=== PATIENT | male | born 1950 | race Caucasian/White ===

== ENCOUNTER 2017-01-22 20:15 | Emergency (ER) | payer MEDICARE, OTHER ==
--- NOTE | 2017-01-22 20:56 | EDM.PDOC ---
ED HPI GENERAL MEDICAL PROBLEM - General Chief Complaint: Cardiovascular Problem Stated Complaint: BLOOD TEST SHOW HEART ISSUES Time Seen by Provider: 01/22/17 20:31 Source of Information: Reports: Patient, RN Notes Reviewed, Other (Friend) History Limitations: Reports: No Limitations - History of Present Illness INITIAL COMMENTS - FREE TEXT/NARRATIVE: The patient states that he had vertigo with associated nausea this morning when he woke up. He was unable to walk in a straight line. His symptoms persisted for about 90 minutes, after which he felt lightheaded, particularly if he stood up, a symptom that has persisted all day. He was seen at the [facility] this morning, where a troponin was drawn, but not actually run until this afternoon. The patient states that he was contacted by the [facility] around 19:00, informed that his troponin was elevated, and instructed to come to the ED. The patient expressly denies any recent chest pain or discomfort, dyspnea, diaphoresis, or sense of impending doom. He states that when he suffered an acute TN in 1998, he presented with severe chest pressure, along with feeling cold and clammy. He states that he did not have either vertigo or lightheadedness with his TN, and that there is "no comparison". The patient denies prior symptoms of vertigo, but states that he has had positional lightheadedness in the past, that he attributes to his blood pressure medications. The patient's PCP is Thomas Mcgee. - Related Data Allergies Allergy/AdvReac Type Severity Reaction Status Date / Time No Known Allergies Allergy Verified 01/22/17 20:22 Home Meds: Home Meds Aspirin 81 mg PO DAILY 01/22/17 [History] Atenolol 12.5 mg PO BID 01/22/17 [History] Lisinopril 20 mg PO DAILY 01/22/17 [History] Omeprazole 20 mg PO DAILY PRN 01/22/17 [History] Simvastatin [Zocor] 20 mg PO DAILY 01/22/17 [History] metFORMIN [Glucophage XR] 1,000 mg PO BID 01/22/17 [History] Past Medical History Cardiovascular History: Reports: CAD, High Cholesterol, Hypertension, TN Gastrointestinal History: Reports: GERD (untreated) Endocrine/Metabolic History: Reports: Diabetes, Type II, Obesity/BMI 30+ - Past Surgical History HEENT Surgical History: Reports: Other (See Below) (Mandible wiring) Cardiovascular Surgical History: Reports: Coronary Artery Stent (x 1) GI Surgical History: Reports: Hernia, Inguinal (right) Male Surgical History: Reports: Other (See Below) (Right orchiectomy) Social & Family History - Tobacco Use Smoking Status *Q: Former Smoker Years of Tobacco use: 23 Packs/Tins Daily: 3 Month Tobacco Last Used: Quit 1986 - Caffeine Use Caffeine Use: Reports: Coffee - Alcohol Use Alcohol Use History: Yes Date/Time of Last Drink Comment: Stopped drinking 1989 Alcohol Use in Last Twelve Months: No - Recreational Drug Use Recreational Drug Use: No - Living Situation & Occupation Living situation: Reports: , Alone 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) ED ROS GENERAL - Review of Systems Review Of Systems: See Below Constitutional: Reports: No Symptoms HEENT: Reports: No Symptoms Respiratory: Reports: No Symptoms Cardiovascular: Reports: No Symptoms Endocrine: Reports: No Symptoms GI/Abdominal: Reports: No Symptoms : Reports: No Symptoms Musculoskeletal: Reports: No Symptoms Skin: Reports: No Symptoms Neurological: Reports: No Symptoms Psychiatric: Reports: No Symptoms Hematologic/Lymphatic: Reports: No Symptoms Immunologic: Reports: No Symptoms ED EXAM, GENERAL - Physical Exam Exam: See Below Exam Limited By: No Limitations General Appearance: Alert, WD/WN, No Apparent Distress Eye Exam: Bilateral Eye: Normal Inspection Ears: Normal External Exam, Hearing Grossly Normal Nose: Normal Inspection, No Blood Throat/Mouth: Normal Inspection, Normal Lips, Normal Voice, No Airway Compromise Head: Atraumatic, Normocephalic Neck: Normal Inspection, Full Range of Motion Respiratory/Chest: No Respiratory Distress, Lungs Clear, Normal Breath Sounds, No Accessory Muscle Use, Chest Non-Tender Cardiovascular: Normal Peripheral Pulses, Regular Rate, Rhythm, No Gallop, No JVD, No Murmur, No Rub Peripheral Pulses: 4+: Radial (L), Radial (R) GI/Abdominal: Normal Bowel Sounds, Soft, Non-Tender, No Organomegaly, No Distention, No Abnormal Bruit, No Mass, Other (Obese) (Male) Exam: Deferred Rectal (Males) Exam: Deferred Back Exam: Normal Inspection, Full Range of Motion, NT Extremities: Normal Inspection, Normal Range of Motion, No Pedal Edema, Normal Capillary Refill Neurological: Alert, Oriented, Normal Cognition, No Motor/Sensory Deficits Psychiatric: Normal Affect Skin Exam: Warm, Dry, Intact, Normal Color, No Rash EKG INTERPRETATION EKG Date: 01/22/17 Time: 20:26 Rhythm: NSR Rate (Beats/Min): 69 Waucoma: Normal P-Wave: Present QRS: Normal ST-T: Normal QT: Normal Comparison: NA - No Prior EKG EKG Interpretation Comments: 2 PVC's Course - Vital Signs Last Recorded V/S: Last Vital Signs Temp 36.4 C 01/22/17 20:19 Pulse 65 01/22/17 20:19 Resp 16 01/22/17 20:19 BP 168/67 H 01/22/17 20:19 Pulse Ox 95 01/22/17 20:19 Orthostatic Blood Pressure [ 121/65 Standing] Orthostatic Blood Pressure [ 119/70 Sitting] Orthostatic Blood Pressure [ 122/70 Supine] - Orders/Labs/Meds Orders: Active Orders 24 hr Category Date Time Status EKG Documentation Completion [RC] STAT Care 01/22/17 20:34 Active Orthostatic Vital Signs [RC] STAT Care 01/22/17 20:48 Active Labs: Laboratory Tests 01/22/17 01/22/17 01/22/17 Range/Units 20:30 20:30 20:30 WBC 9.32 H (4.23-9.07) K/mm3 RBC 4.72 (4.63-6.08) M/mm3 Hgb 15.1 (13.7-17.5) gm/L Hct 43.7 (40.1-51.0) % MCV 92.6 H (79.0-92.2) fl MCH 32.0 (25.7-32.2) pg MCHC 34.6 (32.2-35.5) g/dl RDW Std Deviation 42.7 (35.1-43.9) fL Plt Count 202 (163-337) K/mm3 MPV 9.6 (9.4-12.3) fl Neutrophils % (Manual) 39 L (40-60) % Band Neutrophils % 1 (0-10) % Lymphocytes % (Manual) 56 H (20-40) % Atypical Lymphs % 0 % Monocytes % (Manual) 3 (2-10) % Eosinophils % (Manual) 1 (0.8-7.0) % Basophils % (Manual) 0 L (0.2-1.2) Platelet Estimate Adequate Plt Morphology Comment Normal RBC Morph Comment Normal PT 10.0 (8.0-13.0) SECONDS INR 0.92 APTT 25 (22-36) SECONDS D-Dimer, Quantitative 0.33 (0.19-0.59) mg/L Sodium 143 (136-145) mEq/L Potassium 3.3 L (3.5-5.1) mEq/L Chloride 106 (98-107) mEq/L Carbon Dioxide 25 (21-32) mEq/L Anion Gap 15.3 H (5-15) BUN 13 (7-18) mg/dL Creatinine 0.9 (0.7-1.3) mg/dL Est Cr Clr Drug Dosing 79.17 mL/min Estimated GFR (MDRD) > 60 (>60) mL/min BUN/Creatinine Ratio 14.4 (14-18) Glucose 120 H (80-115) mg/dL Calcium 8.9 (8.5-10.1) mg/dL Total Bilirubin 0.2 (0.2-1.0) mg/dL AST 19 (15-37) U/L ALT 27 (16-63) U/L Alkaline Phosphatase 44 L (46-116) U/L Troponin I 0.097 H* (0.00-0.056) ng/mL NT-Pro-B Natriuret Pep 98 (0-125) pg/mL Total Protein 7.0 (6.4-8.2) g/dl Albumin 3.6 (3.4-5.0) g/dl Globulin 3.4 gm/dL Albumin/Globulin Ratio 1.1 (1-2) - Re-Assessments/Exams Free Text/Narrative Re-Assessment/Exam: 01/22/17 20:55 Two-view chest radiograph obtained at 10:13 this morning appears to be grossly normal. Cardiac silhouette is within normal limits. No pulmonary vascular congestion. No pleural effusions. No focal infiltrate. No pneumothorax. Formal read per the Radiologist pending. 01/22/17 21:12 The patient is not orthostatic. 01/22/17 21:50 Test results discussed with the patient and his friend. Bety's workup is unremarkable, with the exception of his troponin being mildly elevated at 0.097 , the exact same as it was at 10:45 this morning when drawn at the [facility]. If due to a cardiac injury, this would suggest that it is at least several days old. The patient suffered an TN in 1998 or 1999, and received a single cardiac stent in [place], [place]. I recommended that I call a Sales Agent in [place] to discuss the case - he had no preference of [facility] versus [facility]. 01/22/17 21:[address] Gallagher, Sales Agent at [facility], at 21:55. Since the troponin is only mildly elevated and unchanged from this morning, he suggested that the patient may always have a mildly elevated troponin. Since we do not have any troponins other than the 2 from today, there is no way for me to know that. He recommends that if the patient has any symptoms whatsoever, that he be kept overnight for observation, otherwise, he recommends an outpatient stress test and echocardiogram. He does not recommend transfer to [facility]. 01/22/17 22:03 The above was discussed with the patient and his friend. Since the patient has been feeling lightheaded, I recommended that he come in for observation, and that both a stress test and echocardiogram might be possible during this visit, however, the patient replied that he has an appointment for an evaluation for carotid stenosis on 01/30/2017, and that he did not want to stay. This was over the objection of his friend. I recommended that if he develops any additional symptoms, that he return to the ER, and that he follow-up with his PCP as soon as possible to arrange for, specifically, an outpatient stress test and echocardiogram. The patient agreed. Departure - Departure Time of Disposition: 22:06 Disposition: Home, Self-Care 01 Condition: Fair Clinical Impression: Elevated troponin, Lightheaded, Vertigo Instructions: Near-Syncope, Vertigo, [id number], Dizziness, [id number] Referrals: Thomas Mcgee PA-C [Primary Care Provider] - Forms: ED Department Discharge Additional Instructions: You were seen in the emergency room for an elevated cardiac enzyme. Workup in the ER included blood work, that included a repeat cardiac enzyme, an ECG, a chest x-ray, and positional blood pressure checks. Your entire workup was unremarkable, with the exception of your cardiac enzyme again being mildly elevated, the same as it was this morning. Your case was discussed with the Sales Agent Dr. Gallagher. It is possible that you always have a mildly elevated cardiac enzyme, but there is no way for us to know that. Since you had been feeling lightheaded, he recommended that you be observed in the hospital overnight, however, you refused this option. We recommend that you contact your PCP, Thomas Mcgee, to arrange for an outpatient cardiac stress test and echocardiogram, as soon as possible. If you have ANY change in your symptoms, including chest pain, nausea, shortness of breath, sweatiness, clamminess, or anxiety, you return to the ER right away. - My Orders Last 24 Hours: My Active Orders 01/22/17 20:34 EKG Documentation Completion [RC] STAT 01/22/17 20:48 Orthostatic Vital Signs [RC] STAT - Assessment/Plan Last 24 Hours: My Active Orders 01/22/17 20:34 EKG Documentation Completion [RC] STAT 01/22/17 20:48 Orthostatic Vital Signs [RC] STAT
== END 2017-01-22 22:20 | disposition home or self-care (01) ==
LOC: JD.ED 20:15
DX: R42 Dizziness and giddiness (principal); R79.89 Other specified abnormal findings of blood chemistry; I10 Essential (primary) hypertension; I25.10 Atherosclerotic heart disease of native coronary artery without angina pectoris; E78.00 Pure hypercholesterolemia, unspecified; K21.9 Gastro-esophageal reflux disease without esophagitis; E11.9 Type 2 diabetes mellitus without complications; Z95.5 Presence of coronary angioplasty implant and graft; Z87.891 Personal history of nicotine dependence; Z79.84 Long term (current) use of oral hypoglycemic drugs; Z79.82 Long term (current) use of aspirin; Z79.899 Other long term (current) drug therapy; E78.5 Hyperlipidemia, unspecified; I25.2 Old myocardial infarction
CPT/HCPCS: 36415; 71020; 71020-26; 80053; 82553; 83880; 84484; 85025; 85379; 85610; 85730; 93005; 93010; 99284; 99284-25

== ENCOUNTER 2018-07-01 14:14 | Emergency (ER) | payer MEDICARE, OTHER ==
--- NOTE | 2018-07-01 16:15 | EDM.PDOC ---
ED HPI GENERAL MEDICAL PROBLEM - General Chief Complaint: Chest Pain Stated Complaint: NEED LAB WORK DONE, SENT BY DR MAY Time Seen by Provider: 07/01/18 14:23 Source of Information: Reports: Patient, RN Notes Reviewed, Significant Other ( Girlfriend) History Limitations: Reports: No Limitations - History of Present Illness INITIAL COMMENTS - FREE TEXT/NARRATIVE: The patient states that he was experiencing some left-sided chest pain over the weekend. 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 He points with one finger to the middle of his left pectoralis muscle. He is unable to describe the character of the pain, only that it was "sort of weird". He says that it is reproducible if he presses on it. He had no associated shortness of breath, nausea, diaphoresis, or sense of impending doom. His pain was very different than the symptoms that he experienced when he suffered a GA in 1999, which included severe chest pressure, along with feeling cold and clammy. The patient states that he was briefly seen at the [facility] late Friday afternoon, 06/29/2018. He states that no tests were done, but that he was told that, based on his history and physical examination, it was likely a muscle spasm. He states that he was seen at the [facility] again this morning. Blood work, a chest x-ray, and an ECG were obtained. He was told that the chest x-ray was negative, and that he would be notified if there was an abnormality with this blood work. He states that he was then called back this afternoon, being told that his heart enzyme was elevated, and that he needed to come to the ED. The patient's CBC, CMP, and troponin results were forwarded to us. His CBC and CMP are unremarkable, however, his troponin returned elevated at 0.126. The patient was seen by me in this ED on 01/22/2017 with a similar presentation of an incidental finding of elevated troponin, at that time, 0.097. We repeated the troponin, finding it to again be 0.097. The patient's case was discussed with his [employer] Worker, who felt that the patient had chronic mildly elevated troponin. He recommended an outpatient stress test and echocardiogram. The patient was offered placement in the observation, but declined and went home. A third troponin was repeated the following day, 01/23/2019, resulting at 0.092. The patient states that he has subsequently followed up with his [employer] Worker, and had a negative stress test less than one year ago. He further states that he has an appointment to see his [employer] Worker next , 07/09/2018. Here in the ED, the patient is pain-free, unless one palpates his left pectoralis muscle. The patient's PCP is Dennise May. His [employer] Worker is Dr. Gallagher. - Related Data Allergies Allergy/AdvReac Type Severity Reaction Status Date / Time No Known Allergies Allergy Verified 07/01/18 14:21 Home Meds: Home Meds Aspirin 81 mg PO DAILY 01/22/17 [History] Atenolol 12.5 mg PO BID 01/22/17 [History] Lisinopril 20 mg PO DAILY 01/22/17 [History] Omeprazole 20 mg PO DAILY PRN 01/22/17 [History] Simvastatin [Zocor] 20 mg PO DAILY 01/22/17 [History] metFORMIN [Glucophage XR] 1,000 mg PO BID 01/22/17 [History] Past Medical History HEENT History: Reports: Impaired Vision Cardiovascular History: Reports: CAD, High Cholesterol, Hypertension, GA (1999) Gastrointestinal History: Reports: GERD Musculoskeletal History: Reports: Arthritis Endocrine/Metabolic History: Reports: Diabetes, Type II, Obesity/BMI 30+ - Past Surgical History HEENT Surgical History: Reports: Other (See Below) ( Manible wiring) Cardiovascular Surgical History: Reports: Coronary Artery Stent (x 1999) GI Surgical History: Reports: Hernia, Inguinal (right) Male Surgical History: Reports: Other (See Below) (Right orchiectomy) Social & Family History - Tobacco Use Smoking Status *Q: Former Smoker Years of Tobacco use: 23 Packs/Tins Daily: 3 Month/Year Tobacco Last Used: Quit 03/26/1986 - Caffeine Use Caffeine Use: Reports: Coffee - Alcohol Use Alcohol Use History: Yes Date/Time of Last Drink Comment: Formerly heavy drinker. Last drank 1989. 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 ED EXAM, GENERAL - Physical Exam Exam: See Below Exam Limited By: No Limitations General Appearance: Alert, WD/WN, No Apparent Distress Eye Exam: Bilateral Eye: EOMI, Normal Inspection Ears: Normal External Exam, Hearing Grossly Normal Nose: Normal Inspection Throat/Mouth: Normal Inspection, Normal Lips, Normal Voice, No Airway Compromise Head: Atraumatic, Normocephalic Neck: Normal Inspection, Full Range of Motion Respiratory/Chest: No Respiratory Distress, Lungs Clear, Normal Breath Sounds, No Accessory Muscle Use, Other (Reproducible tenderness to palpation of the center of the patient's left pectoralis muscle) Cardiovascular: Normal Peripheral Pulses, Regular Rate, Rhythm, No Gallop, No JVD, No Murmur, No Rub Peripheral Pulses: 4+: Radial (L), Radial (R) GI/Abdominal: Normal Bowel Sounds, Soft, Non-Tender, No Organomegaly, No Distention, No Abnormal Bruit, No Mass, Other (Obese) (Male) Exam: Deferred Rectal (Males) Exam: Deferred Back Exam: Normal Inspection, Full Range of Motion, NT Extremities: Normal Inspection, Normal Range of Motion, No Pedal Edema, Normal Capillary Refill Neurological: Alert, Oriented, Normal Cognition, No Motor/Sensory Deficits Psychiatric: Normal Affect Skin Exam: Warm, Dry, Intact, Normal Color, No Rash Course - Vital Signs Last Recorded V/S: Last Vital Signs Temp 36.7 C 07/01/18 14:24 Pulse 65 07/01/18 14:24 Resp 19 07/01/18 14:24 BP 160/77 H 07/01/18 14:24 Pulse Ox 99 07/01/18 14:24 - Re-Assessments/Exams Free Text/Narrative Re-Assessment/Exam: 07/01/18 16:08 We attempted to reach the patient's [employer] Worker, Dr. Gallagher. We were initially told that he was in with a patient, and would call us back. After we waited a considerable amount of time and did not receive a phone call back, we called a second and third time, but were sent to [facility] on both of those occasions. It appears that their office has closed. As per the HPI, the patient appears to chronically run a mildly elevated troponin, and while his troponin today is slightly higher than previous, it is still in the same general realm. He has not had any anginal like chest pain, he passed a stress test within the last year, and has an appointment to follow-up with his [employer] Worker next , 07/09/2018. I do not see an indication for further evaluation today. I will discharge him home. 07/01/18 17:00 Dr. Gallagher called me at 16:54. I discussed the case and my decision to discharge the patient home. He agreed that that's what he would have recommended , had he called earlier. Departure - Departure Time of Disposition: 16:12 Disposition: Home, Self-Care 01 Condition: Good Clinical Impression: Elevated troponin - Discharge Information *PRESCRIPTION DRUG MONITORING PROGRAM REVIEWED*: Not Applicable *COPY OF PRESCRIPTION DRUG MONITORING REPORT IN PATIENT TRESSA: Not Applicable Instructions: Cardiac-Specific Troponin I and T Test Referrals: Dennise May NP [Primary Care Provider] - Von Gallagher MD [Ordering Only Provider] - Forms: ED Department Discharge Additional Instructions: You were seen in the emergency room after being sent here for consideration of an elevated troponin (heart enzyme). Based on prior medical records, your troponin persistently runs elevated. Because you have not had any recent anginal-like chest pain, you passed a stress test within a year, and you have an appointment to see your [employer] Worker on 07/09/2018, no further evaluation was recommended today. If any further problems, please do not hesitate to return to the ER.
== END 2018-07-01 16:25 | disposition home or self-care (01) ==
LOC: JD.ED 14:14
DX: R79.89 Other specified abnormal findings of blood chemistry (principal); I25.10 Atherosclerotic heart disease of native coronary artery without angina pectoris; E78.00 Pure hypercholesterolemia, unspecified; I10 Essential (primary) hypertension; I25.2 Old myocardial infarction; K21.9 Gastro-esophageal reflux disease without esophagitis; E11.9 Type 2 diabetes mellitus without complications; Z87.891 Personal history of nicotine dependence; Z79.82 Long term (current) use of aspirin; Z79.899 Other long term (current) drug therapy; Z79.84 Long term (current) use of oral hypoglycemic drugs
CPT/HCPCS: 99283

== ENCOUNTER 2023-08-04 12:30 | Emergency (ER) | payer MEDICARE, OTHER ==
[2023-08-04] MEDS: hydrALAZINE 20 MG/ML SDV IVPUSH ONE (14:24)
[2023-08-04] MEDS: Ketorolac 60 MG/2 ML SDV IM ONE (16:27)
[2023-08-04] MEDS: methylPREDNISolone Sodium Succinate 125 MG/2 ML SDV IM ONE (16:28)
== END 2023-08-04 16:35 | disposition home or self-care (01) ==
LOC: JD.ED 12:30
DX: S39.012A Strain of muscle, fascia and tendon of lower back, initial encounter (principal); I25.10 Atherosclerotic heart disease of native coronary artery without angina pectoris; E78.00 Pure hypercholesterolemia, unspecified; I10 Essential (primary) hypertension; I25.2 Old myocardial infarction; K21.9 Gastro-esophageal reflux disease without esophagitis; E11.9 Type 2 diabetes mellitus without complications; E66.9 Obesity, unspecified; Z79.82 Long term (current) use of aspirin; Z79.899 Other long term (current) drug therapy; Z95.5 Presence of coronary angioplasty implant and graft; Z79.84 Long term (current) use of oral hypoglycemic drugs; Z68.36 Body mass index [BMI] 36.0-36.9, adult; X50.1XXA Overexertion from prolonged static or awkward postures, initial encounter
CPT/HCPCS: 71101; 72070; 72100; 96372; 99283; J1885; J2930; 99284

== ENCOUNTER 2024-01-08 08:24 | Day surgery (SDC) | payer MEDICARE, OTHER ==
[2024-01-08] MEDS: Polymyxin B/Trimethoprim 10 ML Bottle EYERT SCH (08:15)
[2024-01-08] MEDS: Brimonidine 0.2% Ophth Soln 5 ML Bottle EYERT SCH (08:19)
[2024-01-08] MEDS: Phenylephrine 2.5% Ophth Soln 2 ML Bot EYERT SCH (08:28)
[2024-01-08] MEDS: Tropicamide 1% Ophth Soln 3 ML Bottle EYERT SCH (08:32)
[2024-01-08] MEDS: Tetracaine HCl/PF 0.5% 4 ML Bottle EYEBOTH SCH (09:54)
[2024-01-08] MEDS: Lidocaine 1% PF 2 ML SDV INJECT SCH (10:16)
[2024-01-08] MEDS: Pilocarpine 4% Ophth Soln 15 ML Bot EYERT SCH (10:29)
[2024-01-08] MEDS: Cefuroxime 10 MG/ML SYRINGE EYERT SCH (10:29)
== END 2024-01-08 10:43 | disposition home or self-care (01) ==
LOC: JD.SDS 08:24
PROVIDERS: ATTEND Ophthalmology
DX: E11.36 Type 2 diabetes mellitus with diabetic cataract (principal); H25.813 Combined forms of age-related cataract, bilateral; I10 Essential (primary) hypertension; H43.812 Vitreous degeneration, left eye; H16.103 Unspecified superficial keratitis, bilateral; H16.223 Keratoconjunctivitis sicca, not specified as Sjogren's, bilateral; H35.033 Hypertensive retinopathy, bilateral; Z87.891 Personal history of nicotine dependence; Z79.899 Other long term (current) drug therapy
CPT/HCPCS: 66984; J0697; A9270-GY; J3490

== ENCOUNTER 2024-02-12 09:52 | Day surgery (SDC) | payer MEDICARE, OTHER ==
[2024-02-12] MEDS: Polymyxin B/Trimethoprim 10 ML Bottle EYELF SCH (11:20)
[2024-02-12] MEDS: Brimonidine 0.2% Ophth Soln 5 ML Bottle EYELF SCH (11:26)
[2024-02-12] MEDS: Phenylephrine 2.5% Ophth Soln 2 ML Bot EYELF SCH (11:30)
[2024-02-12] MEDS: Tropicamide 1% Ophth Soln 3 ML Bottle EYELF SCH (11:35)
[2024-02-12] MEDS: Tetracaine HCl/PF 0.5% 4 ML Bottle EYEBOTH SCH (12:08)
[2024-02-12] MEDS: Lidocaine 1% PF 2 ML SDV INJECT SCH (12:48)
[2024-02-12] MEDS: Cefuroxime 10 MG/ML SYRINGE EYELF SCH (12:59)
[2024-02-12] MEDS: Pilocarpine 4% Ophth Soln 15 ML Bot EYELF SCH (13:00)
== END 2024-02-12 13:07 | disposition home or self-care (01) ==
LOC: JD.SDS 09:52
PROVIDERS: ATTEND Ophthalmology
DX: E11.36 Type 2 diabetes mellitus with diabetic cataract (principal); H25.812 Combined forms of age-related cataract, left eye; I10 Essential (primary) hypertension; Z79.899 Other long term (current) drug therapy
CPT/HCPCS: 66984; A9270; J0697; J3490; V2632